=== PATIENT | female | born 1970 | race African-American/Black ===

== ENCOUNTER 2018-06-20 08:11 | Emergency (ER) | payer BC ==
[2018-06-20] MEDS: ACETAMINOPHEN 325 MG TAB PO (08:45)
== END 2018-06-20 10:16 | disposition home or self-care (01) ==
LOC: FTE 08:11
DX: S09.90XA Unspecified injury of head, initial encounter (principal); S19.9XXA Unspecified injury of neck, initial encounter; W22.8XXA Striking against or struck by other objects, initial encounter; Y92.9 Unspecified place or not applicable
CPT/HCPCS: 72040; 81025; 99283-25